=== PATIENT | male | born 1985 | race Caucasian/White ===

== ENCOUNTER 2021-03-30 08:11 | Emergency (ER) | payer OTHER ==
[~2021-03-30] VITALS: Ht 177.8 cm; Wt 68.0 kg
[~2021-03-30 08:11] MED LIST: HYDACE5 PO; IBUP800 PO; Oxycodone-Apap1 EAC3; Zofran Odt4 MG SL
[2021-03-30] MEDS ORDERED: HYDR1TAB94 PO ×2 (10:58→10:59)
== END 2021-03-30 11:30 | disposition home or self-care (01) ==
LOC: ER 08:11
DX: S05.12XA Contusion of eyeball and orbital tissues, left eye, initial encounter (principal); S05.11XA Contusion of eyeball and orbital tissues, right eye, initial encounter; S05.02XA Injury of conjunctiva and corneal abrasion without foreign body, left eye, initial encounter; S05.01XA Injury of conjunctiva and corneal abrasion without foreign body, right eye, initial encounter; Z23 Encounter for immunization; F17.210 Nicotine dependence, cigarettes, uncomplicated; V49.50XA Passenger injured in collision with unspecified motor vehicles in traffic accident, initial encounter
CPT/HCPCS: 90471; 90714; 99283-25; A9270